=== PATIENT | female | born 1960 | race Hispanic/Latino ===

== ENCOUNTER 2021-07-23 16:40 | Outpatient (CLI) | payer OTHER ==
[2021-07-23 17:02] LABS: Basophils % (Auto) 0.3 % (0.0-1.8); Eosinophils # (Auto) 0.1 K/mm3 (0.0-0.4); Eosinophils % (Auto) 1.8 % (0.0-4.3); Hematocrit 42.8 % (30.3-42.9); Hemoglobin 14.2 gm/dl (10.1-14.3); Lymphocytes # (Auto) 2.7 K/mm3 (1.2-5.4); Lymphocytes % (Auto) 32.6 % (13.4-35.0); Mean Corpuscular HGB Conc 33 % (30-34); Mean Corpuscular Volume 91 fl (79-97); Monocytes # (Auto) 0.7 K/mm3 (0.0-0.8); Monocytes % (Auto) 8.7 % (0.0-7.3); Platelet Count 289 K/mm3 (140-440); Red Cell Distribution Width 13.8 % (13.2-15.2)
[2021-07-23 17:19] LABS: Erythrocyte Sedimentation Rate 29 mm/Hr (0-20)
[2021-07-23 17:23] LABS: Alanine Aminotransferase 24 units/L (7-56); Albumin 4.3 g/dL (3.9-5); Blood Urea Nitrogen 16 mg/dL (7-17); Calcium 9.2 mg/dL (8.4-10.2); Hemolysis Index 6
[2021-07-23 17:25] LABS: BUN/Creatinine Ratio 27
== END 2021-07-23 16:41 | disposition home or self-care (01) ==
LOC: LAB 16:40
PROVIDERS: ATTEND Specialist
DX: S06.0X0A Concussion without loss of consciousness, initial encounter (principal); M50.80 Other cervical disc disorders, unspecified cervical region; X58.XXXA Exposure to other specified factors, initial encounter; Y93.89 Activity, other specified; Y92.89 Other specified places as the place of occurrence of the external cause; Y99.8 Other external cause status
CPT/HCPCS: 36415; 80053; 85025; 85652; 86140